=== PATIENT | female | born 1970 | race Caucasian/White ===

== ENCOUNTER → 2016-11-21 | Outpatient (CLI) | payer OTHER | LOC: BRMIMAGING 14:01 | PROVIDERS: ATTEND Family Medicine | DX: Z12.31 Encounter for screening mammogram for malignant neoplasm of breast (principal) | CPT/HCPCS: G0202 ==

== ENCOUNTER → 2016-11-25 | Outpatient (CLI) | payer OTHER | LOC: BRMIMAGING 09:30 | PROVIDERS: ATTEND Obstetrics & Gynecology | DX: R92.8 Other abnormal and inconclusive findings on diagnostic imaging of breast (principal) | CPT/HCPCS: G0206 ==

== ENCOUNTER → 2016-12-14 | Outpatient (CLI) | payer OTHER | LOC: BRMIMAGING 09:31 | PROVIDERS: ATTEND Obstetrics & Gynecology | DX: R92.8 Other abnormal and inconclusive findings on diagnostic imaging of breast (principal) | CPT/HCPCS: 76641-PO ==

== ENCOUNTER → 2016-12-26 | Outpatient (CLI) | payer OTHER ==
[~2016-12-26] MED LIST: BUPIVACAINE 0.5% 10 ML SDV ONE; LIDO/EPI 1% **Not for Epidural 20 ML MDV ONE; LIDOCAINE 1% 300 MG/30 ML SDV ONE; THROMBIN (BOVINE) 5,000 UNIT VIAL TP ONE
== END ==
LOC: FIMAGING 07:20
PROVIDERS: ATTEND Obstetrics & Gynecology
PROC: 0HBU3ZX Excision of Left Breast, Percutaneous Approach, Diagnostic (ICD-10-PCS; principal; 2016-12-26)
DX: C50.912 Malignant neoplasm of unspecified site of left female breast (principal)
CPT/HCPCS: G0206

== ENCOUNTER → 2017-02-02 | Outpatient (CLI) | payer OTHER ==
[~2017-02-02] MED LIST changes: -BUPIVACAINE 0.5% 10 ML SDV ONE; +GADOBUTROL 10 ML VIAL IVP ONE; -LIDO/EPI 1% **Not for Epidural 20 ML MDV ONE; -LIDOCAINE 1% 300 MG/30 ML SDV ONE; -THROMBIN (BOVINE) 5,000 UNIT VIAL TP ONE
== END ==
LOC: FIMAGING 13:07
PROVIDERS: ATTEND Surgery
DX: C50.912 Malignant neoplasm of unspecified site of left female breast (principal)
CPT/HCPCS: 0159T; A9585; C8908

== ENCOUNTER 2017-02-24 07:21 | Day surgery (SDC) | payer OTHER ==
[2017-02-24] MEDS ORDERED: LR 1,000 ML IV ONE (07:47)
[2017-02-24] MEDS ORDERED: MIDAZOLAM 2 MG/2 ML VIAL IVP ONE (10:39)
--- NOTE | 2017-02-24 10:42 | PDANEPAE ---
ANE History of Present Illness 46 yo F w BCA here for partial mastectomy ANE Past Medical History - Cardiovascular History Hx Hypertension: No Hx Arrhythmias: No Hx Chest Pain: No Hx Coronary Artery / Peripheral Vascular Disease: No Hx CHF / Valvular Disease: No Hx Palpitations: No - Pulmonary History Hx COPD: No Hx Asthma/Reactive Airway Disease: No Hx Recent Upper Respiratory Infection: No Hx Oxygen in Use at Home: No Hx Sleep Apnea: No Sleep Apnea Screening Result - Last Documented: Negative - Neurologic History Hx Cerebrovascular Accident: No Hx Seizures: No Hx Dementia: No - Endocrine History Hx Diabetes: No - Renal History Hx Renal Disorders: No Renal History Comment: HX - UTIs - Liver History Hx Hepatic Disorders: No Hepatic History Comment: MECHANICAL HEPATITIS CHILD - Neurological & Psychiatric Hx Hx Neurological and Psychiatric Disorders: Yes Neurological / Psychiatric History Comment: ANXIETY - Cancer History Hx Cancer: No Cancer History Comment: PRECANCEROUS LESIONS REMOVED - Congenital Disorder History Hx Congenital Disorders: No - GI History Hx Gastrointestinal Disorders: No - Other Health History Other Health History: NEG - Chronic Pain History Chronic Pain: No - Surgical History Prior Surgeries: LAPAROSCOPY - OVARIES ANE Review of Systems - Exercise capacity METS (RN): 5 METS - Systems Neurological: Reports: other (TIA) ANE Patient History - Allergies Allergies/Adverse Reactions: amoxicillin trihydrate [From Augmentin] Allergy (Verified 02/22/17 14:09) Rash potassium clavula *RETIRED-03/12/12 [From Augmentin] Allergy (Verified 02/22/17 14:09) Rash - Home Medications Home medications: home medication list seen and reviewed Home Medications: Alprazolam 02/22/17 [Last Taken Unknown] Herbals/Supplements -Info Only 02/22/17 [Last Taken Unknown] Lorazepam 02/22/17 [Last Taken Unknown] Nitrofurantoin Monohyd/M-Cryst [Macrobid 100 mg Capsule] 02/24/17 [Last Taken 02/23/17 21:00] - NPO status NPO Status: no food or drink >8 hours NPO Since - Liquids (Date): 02/23/17 NPO Since - Liquids (Time): 21:00 NPO Since - Solids (Date): 02/23/17 NPO Since - Solids (Time): 21:00 - Anes Hx Anes Hx: slow to awaken from anesthesia - Smoking Hx Smoking Status: Never smoked - Alcohol Use Alcohol Use: Rarely - Family Anes Hx Family Anes Hx: none Family Hx Anesthesia Complications: NEG ANE Labs/Vital Signs - Vital Signs Blood Pressure: 118/72 Heart Rate: 68 Respiratory Rate: 16 O2 Sat (%): 98 Height: 172.72 cm Weight: 57.153 kg ANE Physical Exam - Airway Neck exam: FROM Mallampati Score: Class 1 Mouth exam: normal dental/mouth exam - Pulmonary Pulmonary: no respiratory distress, clear to auscultation - Cardiovascular Cardiovascular: regular rate and rhythym, no murmur, rub, or gallop - ASA Status ASA Status: II ANE Anesthesia Plan Anesthesia Plan: GA w LMA
[2017-02-24] MEDS ORDERED: ceFAZolin 2 GM/DEXTROSE 100 ML IV ONE (10:43)
[2017-02-24] MEDS ORDERED: fentaNYL 100 MCG/2 ML INJ ONE ×2 (10:54→13:02)
[2017-02-24] MEDS ORDERED: PROPOFOL 200 MG/20 ML VIAL ONE ×2 (10:54)
[2017-02-24] MEDS ORDERED: LIDOCAINE 2% 100 MG/5 ML SYR ONE (10:54)
[2017-02-24] MEDS ORDERED: ONDANSETRON 4 MG/2 ML VIAL ONE ×2 (11:31→14:31)
[2017-02-24] MEDS ORDERED: DEXAMETHASONE 4 MG/ML VIAL ONE (11:31)
[2017-02-24] MEDS ORDERED: HYDROmorphONE/DILAUDID 1 MG/ML SYR IVP PRN (11:53)
[2017-02-24] MEDS ORDERED: NALOXONE HCL 0.4 MG/ML INJ IVP PRN (11:53)
[2017-02-24] MEDS ORDERED: PROMETHAZINE HCL 25 MG/ML INJ IVP PRN (11:53)
[2017-02-24] MEDS ORDERED: fentaNYL 100 MCG/2 ML INJ IVP PRN (11:53)
[2017-02-24] MEDS ORDERED: epHEDrine SULFATE 10 MG/ML SYR ONE (12:00)
[2017-02-24] MEDS ORDERED: BUPIVACAINE 0.25% 30 ML SDV ONE (12:45)
[2017-02-24] MEDS ORDERED: ONDANSETRON DISINTEGRATING 4 MG TAB PO PRN (13:28)
[2017-02-24] MEDS ORDERED: HYDROCODONE/APAP 5/325 TAB PO PRN (13:28)
[2017-02-24 13:30] VITALS: TEMP 97.9
--- NOTE | 2017-02-24 13:36 | POSTANESTH ---
Post Anesthetic Evaluation Cardiovascular Status: Normal, Stable, Similar to Pre-Op Cond Respiratory Status: Normal, Stable, Similar to Pre-op Cond. Level of Consciousness/Mental Status: Can Participate in Eval, Alert and Oriented Pain Control: Adequate, Prn Tx Ordered Nausea/Vomiting Control: Adequate, Prn Tx Ordered Complications Possibly Related to Anesthesia: None Noted
--- NOTE | 2017-02-24 13:37 | POSTOPPROG ---
Post Op Note Date of Operation: 02/24/17 Surgeon: Estevan Healy (, FACS) Engineering Technology Instructor: Valery Perera RN-FA Anesthesiologist: Donte Perez MD Anesthesia: GET(General Endotracheal) Pre-op Diagnosis: left breast cancer Post-op Diagnosis: same Procedure: left partial mastectomy, sentinel node mapping, reconstruction Findings: 2.3 cm Biozorb implanted Inf/Abcess present in the surg proc area at time of surgery?: No EBL: 50-100 Specimen(s): left axillary sentinel nodes x 3 ( 1 mildly suspicious for micromets) left axillary non-sentinel node x 1 left partial mastectomy specimen left additional medial and inferior margins
[2017-02-24] MEDS: ONDANSETRON 4 MG/2 ML VIAL IVP PRN ×2 (13:50→14:33)
[2017-02-24 14:15] VITALS: RESP 16
[2017-02-24 15:39] VITALS: BP 114/69; PULSE 69; O2SAT 100
--- NOTE | 2017-02-24 16:04 | GOP ---
[f rep st] OPERATIVE REPORT DATE OF OPERATION: 02/24/2017 SURGEON: Estevan Healy MD, FACS [employer] MANAGER: BANDAR Merritt. ANESTHESIA: Donte Perez MD. PREOPERATIVE DIAGNOSIS: Left breast carcinoma. POSTOPERATIVE DIAGNOSIS: Left breast carcinoma. PROCEDURE PERFORMED: 1. Left partial mastectomy with preoperative ultrasound-guided needle localization. 2. Boyd lymph node mapping and superficial left axillary lymph node dissection. 3. Oncoplastic reconstruction with adjacent tissue transfer and implantation of BioZorb. FINDINGS: Three sentinel nodes were submitted for frozen section. Dr. Teresa reported one area of microscopic cells that were suspicious, but that he would defer the final diagnosis to permanent section. One additional non-sentinel lymph node was submitted for permanent section. The left partial mastectomy specimen was inked for orientation with a margin marker kit, and a specimen mammogram confirmed the clip and wire to be within the specimen. Gross inspection of this lumpectomy specimen by Dr. Monahan revealed the inferior and medial margins to be closest to the suspected area of tumor. These were reexcised and submitted for permanent section. ESTIMATED BLOOD LOSS: 50 mL. DESCRIPTION OF PROCEDURE: After informed consent was obtained, the patient was brought to the operating room and placed under general anesthesia. The left breast was prepped and draped in usual fashion. Before proceeding, a time-out and identification of the patient were performed. The safe and timely completion of the operation required the help of a qualified 1st assistant professor of history, and VINH Juares was requested to attend. The sentinel node procedure was performed first as follows. The gamma probe was used to interrogate the axilla, where a sentinel node had visualized on lymphoscintigraphy after injection of technetium-99m preoperatively. The point of maximum activity was marked on the skin with a marking pen. This was infiltrated with 0.25% Marcaine and incised transversely near the base of the axilla. Dissection was carried through the skin, subcutaneous tissue and superficial axillary fascia; and 3 sentinel nodes were retrieved from the lower level 1 chain adjacent to the serratus muscle. These measured anywhere from 5 to 12 mm in size and clinically appeared normal. In the course of dissection, 1 additional node had been removed that did not meet criteria as a sentinel node. This was labeled a non-sentinel lymph node. It measured approximately 4 mm in diameter and was submitted for permanent section. The wound was infiltrated with 0.25% Marcaine, and the subcutaneous tissues were approximated with 3-0 Monocryl suture. Skin was closed with 4-0 Monocryl suture in a subcuticular fashion. The partial mastectomy was been performed as follows. The patient had a wire exiting the breast at the 3 o'clock position, directed posteriorly and medially. The planned incision site was at the areolar border, and this was infiltrated with 0.25% Marcaine and incised between approximately 1 o'clock and 4 o'clock position adjacent to the areola. A plane of dissection was entered in the deep subcutaneous tissue plane, and dissection was carried out laterally to intercept the wire and bring it into the incision. The deep breast tissue around the shaft and tip of the wire was first infiltrated with 0.25% Marcaine and excised from lateral to medial, removing the superficial subcutaneous fatty tissue and orienting the specimen after it was removed with a margin marker kit. No skin was removed with the lumpectomy. Palpation revealed a vague tumor within the specimen. The closest gross margin to surgical resection was near the tip of the wire medially. Dr. Monahan subsequently reviewed the specimen after specimen mammogram showed the clip to be within the specimen and felt that the clip and prior biopsy cavity were closest to the inferior margin. Both these margins were re-excised to a depth of approximately 8 mm and were marked with a margin marker kit and submitted for permanent section. Hemostasis was secured with cautery and 3-0 Monocryl suture ligature. A BioZorb prosthesis was brought onto the field after checking the cavity with appropriate sizers. A 2 x 3 cm prosthesis was selected. This was secured to the deep margin as well as to the medial and lateral margins of the cavity with interrupted 3-0 Monocryl sutures. Additional sutures were used to secure the device inferiorly and superiorly, again using 3-0 Monocryl suture. The superficial subcutaneous tissues and breast tissues were mobilized in a subcutaneous plane approximately 2.5 cm inferior and 2 cm cephalad to the incision. Subareolar tissues were freed up for a distance of less than 10 mm, and these 3 margins were used to close over the defect of the lumpectomy cavity , approximating the tissues transversely with interrupted 3-0 Monocryl suture. Hemostasis appeared secure. Subcutaneous tissues were approximated with 3-0 Monocryl suture. Skin was closed with 4-0 Monocryl suture in a subcuticular fashion. Topical Dermabond was applied to both incisions. The patient was returned extubated to the recovery room in satisfactory condition. Needle, sponge and instrument counts were correct. COMPLICATIONS: None. /[id number]/MODL MTDD
== END 2017-02-24 16:24 | disposition home or self-care (01) ==
LOC: FSGY 07:21
PROVIDERS: ATTEND Surgery
PROC: 3E0W3HZ Introduction of Radioactive Substance into Lymphatics, Percutaneous Approach (ICD-10-PCS; 2017-02-24)
PROC: 0HBU0ZZ Excision of Left Breast, Open Approach (ICD-10-PCS; principal; 2017-02-24 11:00)
PROC: 07B60ZX Excision of Left Axillary Lymphatic, Open Approach, Diagnostic (ICD-10-PCS; principal; 2017-02-24 11:00)
PROC: 0HRU07Z Replacement of Left Breast with Autologous Tissue Substitute, Open Approach (ICD-10-PCS; principal; 2017-02-24 11:00)
PROC: 0HHU01Z Insertion of Radioactive Element into Left Breast, Open Approach (ICD-10-PCS; principal; 2017-02-24 11:00)
PROC: 0HRU0JZ Replacement of Left Breast with Synthetic Substitute, Open Approach (ICD-10-PCS; principal; 2017-02-24 11:00)
DX: C50.912 Malignant neoplasm of unspecified site of left female breast (principal); C77.9 Secondary and unspecified malignant neoplasm of lymph node, unspecified; F41.9 Anxiety disorder, unspecified; Z88.0 Allergy status to penicillin; Z17.0 Estrogen receptor positive status [ER+]
CPT/HCPCS: 19281; 19301; 19340; 19366; 38525; 76098; 78195; A9520; C9728; J0690; J1100; J2001; J2405; J2704; J3010

== ENCOUNTER → 2017-02-24 | Outpatient (CLI) | payer OTHER ==
[~2017-02-24] MED LIST changes: +BUPIVACAINE 0.25% 30 ML SDV ONE; -GADOBUTROL 10 ML VIAL IVP ONE; +MIDAZOLAM 2 MG/2 ML VIAL ONE; +ONDANSETRON 4 MG/2 ML VIAL ONE; +fentaNYL 100 MCG/2 ML INJ ONE
== END ==
LOC: FIMAGING 07:27
PROVIDERS: ATTEND Surgery
PROC: 0HHU31Z Insertion of Radioactive Element into Left Breast, Percutaneous Approach (ICD-10-PCS; principal; 2017-02-24)
DX: C50.912 Malignant neoplasm of unspecified site of left female breast (principal)
CPT/HCPCS: J2250; J2405; J3010

== ENCOUNTER → 2017-10-09 | Outpatient (CLI) | payer OTHER | LOC: FIMAGING 16:21 | PROVIDERS: ATTEND Nurse Practitioner | DX: R22.42 Localized swelling, mass and lump, left lower limb (principal); M79.662 Pain in left lower leg ==

== ENCOUNTER → 2018-11-12 | Outpatient (CLI) | payer OTHER | LOC: FIMAGING 13:56 | PROVIDERS: ATTEND Surgery | DX: Z12.31 Encounter for screening mammogram for malignant neoplasm of breast (principal); Z85.3 Personal history of malignant neoplasm of breast ==